=== PATIENT | male | born 1945 | race Caucasian/White ===

== ENCOUNTER → 2021-07-31 | Day surgery (SDC) | payer OTHER | END | disposition home or self-care (01) | LOC: JRADIR 09:01 | PROVIDERS: ATTEND Nurse Practitioner Acute Care | PROC: 02HV33Z Insertion of Infusion Device into Superior Vena Cava, Percutaneous Approach (ICD-10-PCS; principal; 2021-07-31) | PROC: B518ZZA Fluoroscopy of Superior Vena Cava, Guidance (ICD-10-PCS; 2021-07-31) | DX: N28.9 Disorder of kidney and ureter, unspecified (principal); M86.9 Osteomyelitis, unspecified | CPT/HCPCS: 36558; C1751 ==

== ENCOUNTER → 2021-08-22 | Day surgery (SDC) | payer OTHER | END | disposition home or self-care (01) | LOC: JRADIR 11:20 | PROVIDERS: ATTEND Nurse Practitioner Acute Care | PROC: 02PY03Z Removal of Infusion Device from Great Vessel, Open Approach (ICD-10-PCS; principal; 2021-08-22) | DX: Z45.2 Encounter for adjustment and management of vascular access device (principal) | CPT/HCPCS: 36589 ==